=== PATIENT | female | born 1950 | race Caucasian/White ===

== ENCOUNTER 2017-02-02 18:59 | Observation (INO) | payer OTHER ==
[~2017-02-02] VITALS: Ht 162.6 cm; Wt 81.1 kg
[2017-02-02 19:40] LABS: EOSINOPHIL (%) 0.1 % (0-5); HEMATOCRIT 36.2 % (36.0-46.0); IMMATURE GRANULOCYTE (%) 0.6 % (0.0-0.7); IMMATURE GRANULOCYTE COUNT 0.1 K/uL; INSTRUMENT ABS NEUTROPHIL CT 6.4 K/uL; LYMPHOCYTE COUNT 1.2 K/uL (1.0-2.8); MCH 31.2 PG (29.0-34.0); MCHC 34.3 G/DL (30.0-36.0); MEAN PLAT.VOLUME 9.7 uM^3 (9.5-12.4); MONOCYTE (%) 8.9 % (3-12); MONOCYTE COUNT 0.8 K/uL (0-0.8); NEUTROPHIL (%) 76.4 % (45-76); NEUTROPHIL COUNT 6.4 K/uL (1.8-6.4); PLATELET COUNT 415 K/uL (156-360); RBC DIS.WIDTH-CV 13.5 % (11.8-14.6); RBC DIS.WIDTH-SD 45.1 % (39-53); RED BLOOD COUNT 3.98 M/uL (3.80-5.20); WHITE BLOOD COUNT 8.4 K/uL (4.1-10.2)
[2017-02-02 19:48] LABS: CHLORIDE 103 mEq/L (99-109); POTASSIUM 4.1 mEq/L (3.7-5.4); SODIUM 137 mEq/L (136-147)
[2017-02-02 19:51] LABS: GLUCOSE 102 mg/dL (70-99)
[2017-02-02 19:52] LABS: ANION GAP 11 MEQ/L (2-14); TOTAL BILIRUBIN 0.2 mg/dL (0.0-1.0)
[2017-02-02 19:54] LABS: ALKALINE PHOSPHATASE 73 IU/L (3-129); GFR ESTIMATE (CALCULATED) > 59 mL/min/
[2017-02-02 19:55] LABS: UREA NITROGEN (BUN) 15 mg/dL (9-23)
[2017-02-02 20:49] LABS: ADD MIUA? YES; BILIRUBIN NEGATIVE; BLOOD SMALL; COLOR YELLOW ((YELLOW)); GLUCOSE (STRIP) NEGATIVE; KETONES NEGATIVE; LEUKOCYTES SMALL; NITRITE NEGATIVE; PROTEIN (STRIP) NEGATIVE; SPECIFIC GRAVITY 1.011 (1.000-1.030); UROBILINOGEN 0.2 MG/DL (0.2-1.0)
[2017-02-02 21:08] LABS: AMORPHOUS URATES CRYSTALS 2+; BACTERIA 2+ /HPF; CASTS NONE SEEN /LPF; CRYSTALS PRESENT; EPITHELIAL CELLS RARE /HPF; MUCUS NONE SEEN /LPF; RED BLOOD CELLS 0-5 /HPF (0-5); WHITE BLOOD CELLS 0-5 /HPF (0-5)
[2017-02-02 22:44] LABS: LIPASE 24 U/L (1.0-51.0)
[2017-02-03] MEDS ORDERED: HEPARIN SO5000 UNIT3 IV (00:51)
[2017-02-03] MEDS ORDERED: MAXALT10 MG PO (00:53)
[2017-02-03] MEDS ORDERED: IBUPROFEN400 MG PO (00:54)
[2017-02-03] MEDS ORDERED: TYLENOL EXTRA500 MG PO (00:56)
[2017-02-03] MEDS ORDERED: HYDROMORPHONE HC2 MG PO (00:57)
[2017-02-03 02:02] LABS: TROP-I INTERPRETATION NEGATIVE; TROPONIN-I < 0.01 ng/mL (0.0-0.30)
[2017-02-03 02:33] VITALS: BP 113/55
[2017-02-03 05:39] LABS: EOSINOPHIL (%) 0.3 % (0-5); HEMATOCRIT 32.6 % (36.0-46.0); IMMATURE GRANULOCYTE (%) 0.5 % (0.0-0.7); LYMPHOCYTE COUNT 1.1 K/uL (1.0-2.8); MCH 31.1 PG (29.0-34.0); MCHC 33.1 G/DL (30.0-36.0); MCV 93.9 FL (83-99); MEAN PLAT.VOLUME 9.7 uM^3 (9.5-12.4); MONOCYTE (%) 7.4 % (3-12); MONOCYTE COUNT 0.6 K/uL (0-0.8); PLATELET COUNT 379 K/uL (156-360); RBC DIS.WIDTH-CV 13.8 % (11.8-14.6); RBC DIS.WIDTH-SD 47.1 % (39-53); RED BLOOD COUNT 3.47 M/uL (3.80-5.20); WHITE BLOOD COUNT 7.8 K/uL (4.1-10.2)
[2017-02-03 06:03] LABS: ALKALINE PHOSPHATASE 57 IU/L (3-129); ANION GAP 6 MEQ/L (2-14); CHLORIDE 108 MEQ/L (99-109); GFR ESTIMATE (CALCULATED) > 59 mL/min/; GLUCOSE 124 mg/dL (70-99); MAGNESIUM 2.2 mg/dl (1.3-2.7); POTASSIUM 4.4 MEQ/L (3.7-5.4); SAMPLE HEMOLYSIS CHECK 0; SAMPLE ICTERIC CHECK 0; SAMPLE LIPEMIA CHECK 0; SODIUM 140 MEQ/L (136-147); TOTAL BILIRUBIN 0.3 MG/DL (0.0-1.0); UREA NITROGEN (BUN) 12 mg/dL (9-23)
[2017-02-03 08:15] VITALS: BP 108/58
[2017-02-03 11:18] VITALS: BP 106/53
[2017-02-03 15:45] VITALS: BP 107/51
[2017-02-03 20:55] VITALS: BP 113/56
[2017-02-04 00:43] VITALS: BP 112/53
[2017-02-04 04:21] VITALS: BP 113/60
[2017-02-04 06:03] LABS: HEMATOCRIT 33.6 % (36.0-46.0); MCH 31.4 PG (29.0-34.0); MCHC 32.7 G/DL (30.0-36.0); MEAN PLAT.VOLUME 9.8 uM^3 (9.5-12.4); PLATELET COUNT 373 K/uL (156-360); RBC DIS.WIDTH-SD 48.7 % (39-53)
[2017-02-04 07:38] LABS: ALKALINE PHOSPHATASE 52 IU/L (3-129); CHLORIDE 109 MEQ/L (99-109); GLUCOSE 95 mg/dL (70-99); POTASSIUM 4.5 MEQ/L (3.7-5.4); SAMPLE HEMOLYSIS CHECK 0; SAMPLE ICTERIC CHECK 0; SAMPLE LIPEMIA CHECK 0; SODIUM 141 MEQ/L (136-147); TOTAL BILIRUBIN 0.3 MG/DL (0.0-1.0); UREA NITROGEN (BUN) 10 mg/dL (9-23)
[2017-02-04 07:57] LABS: LIPASE 18 U/L (1.0-51.0)
[2017-02-04 08:13] LABS: GFR ESTIMATE (CALCULATED) > 59 mL/min/
[2017-02-04 08:16] LABS: ANION GAP 5 MEQ/L (2-14)
[2017-02-04 08:55] VITALS: BP 136/66
[2017-02-04 10:59] VITALS: BP 126/60
[2017-02-04] MEDS ORDERED: CEFTIN500 MG PO (16:06)
[2017-02-04 16:47] VITALS: BP 129/62
[2017-02-04] MEDS ORDERED: ZOFRAN4 MG PO (16:58)
== END 2017-02-04 17:35 | disposition home or self-care (01) ==
LOC: EME 18:59 → EDOF 02-03 01:02 → ENRESERV 02-03 01:02 → 5WEST 02-03 02:19
PROVIDERS: Emergency Medicine; Internal Medicine; Physician Assistant
DX: R11.2 Nausea with vomiting, unspecified (principal); R10.13 Epigastric pain; Z90.49 Acquired absence of other specified parts of digestive tract; Z90.5 Acquired absence of kidney; Z87.19 Personal history of other diseases of the digestive system; N39.0 Urinary tract infection, site not specified; K76.89 Other specified diseases of liver; D47.3 Essential (hemorrhagic) thrombocythemia; M96.841 Postprocedural hematoma of a musculoskeletal structure following other procedure; Z85.828 Personal history of other malignant neoplasm of skin; Z90.710 Acquired absence of both cervix and uterus; Z82.49 Family history of ischemic heart disease and other diseases of the circulatory system
CPT/HCPCS: 71010; 74176; 80053; 81003; 83690; 83735; 84484; 85025; 85027; 93005; 99281; 99285; C9113; G0378; J0696; J2270; J2405; J2765; J3010; J7030; J7042